=== PATIENT | female | born 1940 | race Caucasian/White ===

== ENCOUNTER 2024-03-26 10:22 | Emergency (ER) | payer OTHER ==
[2024-03-26 10:36] VITALS: BP 170/86; PULSE 65; RESP 16; TEMP 97.3; BMI 21.4
[2024-03-26] MEDS ORDERED: ACETAMINOPHEN 500 MG TABLET (FP) ONE (10:40)
[2024-03-26] MEDS: ACETAMINOPHEN 500 MG TABLET (FP) PO ONE (10:43)
[2024-03-26] MEDS ORDERED: LIDOCAINE HCL 1%, 10 MG/ML (20ML VIAL) ONE (12:00)
[2024-03-26] MEDS ORDERED: morphine SULFATE 4 MG/ML VIAL ONE (12:23)
[2024-03-26] MEDS: morphine CARPU-JECT 2 MG/1 ML DISP.SYRIN IM ONE (12:27)
[2024-03-26] MEDS: LIDOCAINE HCL 1%, 10 MG/ML (50 mL VIAL) SQ ONE (12:30)
== END 2024-03-26 13:35 | disposition home or self-care (01) ==
LOC: FER 10:22
PROC: 3E013NZ Introduction of Analgesics, Hypnotics, Sedatives into Subcutaneous Tissue, Percutaneous Approach (ICD-10-PCS; principal; 2024-03-26)
DX: S52.501A Unspecified fracture of the lower end of right radius, initial encounter for closed fracture (principal); S52.611A Displaced fracture of right ulna styloid process, initial encounter for closed fracture; W01.0XXA Fall on same level from slipping, tripping and stumbling without subsequent striking against object, initial encounter
CPT/HCPCS: 73090-TC-RT-FY; 73110-TC-RT-FY; 73130-TC-RT-FY; 99284-25